=== PATIENT | female | born 1985 | race Caucasian/White ===

== ENCOUNTER 2016-11-23 09:10 | Emergency (ER) | payer OTHER ==
[~2016-11-23] VITALS: Ht 154.9 cm; Wt 98.4 kg
[~2016-11-23 09:10] MED LIST: ACIDOPHILUS1 EAC4 PO; ALBUTEROL SULF8.5 GM IH; BENTYL10 MG PO; CLEOCIN300 MG PO; CYCLOBENZAPRINE5 MG PO; DILAUDID2 MG PO; FLEXERIL10 MG PO; GABAPENTIN300 MG PO; IBUPROFEN800 MG PO; KEFLEX500 MG PO; MEDROL DOSEPAK4 MG PO; METRONIDAZOLE500 MG PO; MOTRIN800 MG PO; NAPROSYN500 MG PO; NAPROXEN500 MG PO; NORCO 10/3251 TABLET PO; PERCOCET 7.51 TABLET PO; PROAIR HFA8.5 GM IH; ROBITUSSIN AC,T10 ML PO; ROXICODONE5 MG PO; SERTRALINE HCL50 MG PO; SPACER; TESSALON PERLE100 MG PO; TORADOL10 MG PO; TRAMADOL HCL50 MG PO; VALIUM5 MG PO; ZITHROMAX500 MG PO; ZOFRAN ODT4 MG PO; ZOFRAN4 MG PO; ZOLOFT100 MG PO; ZOLOFT50 MG PO
[2016-11-23] MEDS ORDERED: LIDODERM 5% P1 PATCH TD (12:12)
[2016-11-23] MEDS ORDERED: BACLOFEN10 MG PO (12:12)
[2016-11-23 12:23] VITALS: BP 142/78
== END 2016-11-23 12:23 | disposition home or self-care (01) ==
LOC: EME 09:10
DX: S46.812A Strain of other muscles, fascia and tendons at shoulder and upper arm level, left arm, initial encounter (principal); M62.830 Muscle spasm of back; R20.2 Paresthesia of skin; G89.29 Other chronic pain; Z91.040 Latex allergy status
CPT/HCPCS: 99281; 99283

== ENCOUNTER 2016-11-25 19:25 | Emergency (ER) | payer OTHER ==
[~2016-11-25] VITALS: Ht 154.9 cm; Wt 78.8 kg
[~2016-11-25 19:25] MED LIST changes: +BACLOFEN10 MG PO; +LIDODERM 5% P1 PATCH TD
[2016-11-25 20:49] LABS: EOSINOPHIL (%) 2.5 % (0-5); EOSINOPHIL COUNT 0.4 K/uL (0-0.3); HEMATOCRIT 39.8 % (36.0-46.0); IMMATURE GRANULOCYTE (%) 0.2 % (0.0-0.7); IMMATURE GRANULOCYTE COUNT 0.3 K/uL; LYMPHOCYTE COUNT 1.7 K/uL (1.0-2.8); MCH 31.2 PG (29.0-34.0); MCHC 35.4 G/DL (30.0-36.0); MCV 88.1 FL (83-99); MEAN PLAT.VOLUME 10.8 uM^3 (9.5-12.4); MONOCYTE (%) 4.8 % (3-12); MONOCYTE COUNT 0.8 K/uL (0-0.8); NEUTROPHIL (%) 81.6 % (45-76); NEUTROPHIL COUNT 13.1 K/uL (1.8-6.4); PLATELET COUNT 263 K/uL (156-360); RBC DIS.WIDTH-CV 13.5 % (11.8-14.6); RED BLOOD COUNT 4.52 M/uL (3.80-5.20)
[2016-11-25 21:00] LABS: CHLORIDE 106 mEq/L (99-109); POTASSIUM 4.3 mEq/L (3.7-5.4); SODIUM 137 mEq/L (136-147)
[2016-11-25 21:02] LABS: GLUCOSE 99 mg/dL (70-99)
[2016-11-25 21:03] LABS: ANION GAP 11 MEQ/L (2-14)
[2016-11-25 21:04] LABS: TOTAL BILIRUBIN 0.3 mg/dL (0.0-1.0)
[2016-11-25 21:06] LABS: GFR ESTIMATE (CALCULATED) > 59 mL/min/
[2016-11-25 21:07] LABS: ALKALINE PHOSPHATASE 82 IU/L (3-129)
[2016-11-25 21:08] LABS: DIRECT BILIRUBIN 0.1 mg/dL (0.0-0.3); UREA NITROGEN (BUN) 14 mg/dL (9-23)
[2016-11-25 21:09] LABS: SALICYLATE < 5.0 MG/DL (15-30)
[2016-11-25 21:19] LABS: AMPHETAMINE NEGATIVE (500 ng/mL); BARBITURATES NEGATIVE (200 ng/mL); BENZODIAZEPINES NEGATIVE (150 ng/mL); COCAINE NEGATIVE (150 ng/mL); INTERNAL CONTROLS VALID? YES; METHADONE NEGATIVE (200 ng/mL); METHAMPHETAMINE NEGATIVE (500 ng/mL); OPIATES (MORPHINE) NEGATIVE (100 ng/mL); OXYCODONE PRESUMPTIVE POSITIVE (100 ng/mL); PHENCYCLIDINE NEGATIVE (25 ng/mL); PROPOXYPHENE NEGATIVE (300 ng/mL); THC CANNABINOIDS PRESUMPTIVE POSITIVE (50 ng/mL); TRICYCLIC ANTIDEPRESSANTS PRESUMPTIVE POSITIVE (300 ng/mL)
[2016-11-25 21:20] LABS: ADD MEDTOX COMMENT Y
[2016-11-25 23:49] LABS: BILIRUBIN NEGATIVE; BLOOD NEGATIVE; COLOR YELLOW ((YELLOW)); GLUCOSE (STRIP) NEGATIVE; KETONES NEGATIVE; LEUKOCYTES NEGATIVE; NITRITE NEGATIVE; PROTEIN (STRIP) NEGATIVE; SPECIFIC GRAVITY 1.027 (1.000-1.030); UROBILINOGEN 0.2 MG/DL (0.2-1.0)
[2016-11-25 23:55] LABS: ADD MIUA? NO
[2016-11-26 00:21] VITALS: BP 111/67
== END 2016-11-26 00:22 | disposition home or self-care (01) ==
LOC: EME 19:25
PROVIDERS: Emergency Medicine
DX: T50.991A Poisoning by other drugs, medicaments and biological substances, accidental (unintentional), initial encounter (principal); M25.512 Pain in left shoulder; R53.83 Other fatigue; Z79.891 Long term (current) use of opiate analgesic; J45.909 Unspecified asthma, uncomplicated; F17.200 Nicotine dependence, unspecified, uncomplicated; F12.90 Cannabis use, unspecified, uncomplicated
CPT/HCPCS: 80048; 80076; 81003; 84999; 85025; 93005; 99281; 99285; G0480; J2310; J7030

== ENCOUNTER 2016-12-10 09:23 | Emergency (ER) | payer OTHER ==
[~2016-12-10] VITALS: Ht 157.5 cm; Wt 75.3 kg
[2016-12-10 10:12] LABS: HEMATOCRIT 40.4 % (36.0-46.0); MCH 30.3 PG (29.0-34.0); MCHC 34.2 G/DL (30.0-36.0); MCV 88.6 FL (83-99); MEAN PLAT.VOLUME 11.2 uM^3 (9.5-12.4); PLATELET COUNT 225 K/uL (156-360); RBC DIS.WIDTH-CV 13.6 % (11.8-14.6); RBC DIS.WIDTH-SD 43.5 % (39-53); RED BLOOD COUNT 4.56 M/uL (3.80-5.20)
[2016-12-10 10:13] LABS: WHITE BLOOD COUNT 5.3 K/uL (4.1-10.2)
[2016-12-10 10:21] LABS: CHLORIDE 107 mEq/L (99-109); POTASSIUM 3.6 mEq/L (3.7-5.4); SODIUM 140 mEq/L (136-147)
[2016-12-10 10:23] LABS: GLUCOSE 104 mg/dL (70-99)
[2016-12-10 10:24] LABS: ANION GAP 12 MEQ/L (2-14)
[2016-12-10 10:25] LABS: TOTAL BILIRUBIN 0.5 mg/dL (0.0-1.0)
[2016-12-10 10:27] LABS: ALKALINE PHOSPHATASE 83 IU/L (3-129); GFR ESTIMATE (CALCULATED) > 59 mL/min/
[2016-12-10 10:28] LABS: UREA NITROGEN (BUN) 9 mg/dL (9-23)
[2016-12-10 10:36] LABS: QUANTITATIVE HCG < 4.0 MIU/ML
[2016-12-10 10:58] LABS: ADD MIUA? NO; BILIRUBIN NEGATIVE; BLOOD NEGATIVE; COLOR YELLOW ((YELLOW)); GLUCOSE (STRIP) NEGATIVE; KETONES NEGATIVE; LEUKOCYTES NEGATIVE; NITRITE NEGATIVE; PROTEIN (STRIP) NEGATIVE; UCUL ADDED? NO; UROBILINOGEN 0.2 MG/DL (0.2-1.0)
[2016-12-10 12:16] VITALS: BP 129/98
== END 2016-12-10 12:18 | disposition home or self-care (01) ==
LOC: EME 09:23
DX: K52.9 Noninfective gastroenteritis and colitis, unspecified (principal); J45.909 Unspecified asthma, uncomplicated; F17.200 Nicotine dependence, unspecified, uncomplicated; Z87.442 Personal history of urinary calculi
CPT/HCPCS: 80053; 81003; 84702; 85027; 87493; 99281; 99285; J1200; J2405; J2765; J7030

== ENCOUNTER 2017-03-19 09:41 | Emergency (ER) | payer OTHER ==
[~2017-03-19] VITALS: Ht 154.9 cm; Wt 70.0 kg
[2017-03-19 09:56] VITALS: BP 114/75
[2017-03-19] MEDS ORDERED: PERCOCET 5/31 TABLET PO (10:42)
[2017-03-19] MEDS ORDERED: CYCLOBENZAPRINE10 MG PO (10:43)
[2017-03-19] MEDS ORDERED: LIDODERM 5% P1 PATCH TD (11:26)
== END 2017-03-19 11:44 | disposition home or self-care (01) ==
LOC: EME 09:41
DX: S39.012A Strain of muscle, fascia and tendon of lower back, initial encounter (principal); W10.9XXA Fall (on) (from) unspecified stairs and steps, initial encounter; G89.29 Other chronic pain
CPT/HCPCS: 72100; 99281; 99284; J1885

== ENCOUNTER 2017-05-02 05:33 | Emergency (ER) | payer OTHER ==
[~2017-05-02] VITALS: Ht 154.9 cm; Wt 68.1 kg
[~2017-05-02 05:33] MED LIST changes: +CYCLOBENZAPRINE10 MG PO; +PERCOCET 5/31 TABLET PO
[2017-05-02] MEDS ORDERED: FLEXERIL10 MG PO (07:52)
[2017-05-02 07:57] VITALS: BP 140/83
== END 2017-05-02 08:04 | disposition home or self-care (01) ==
LOC: EME 05:33
DX: M54.6 Pain in thoracic spine (principal); G89.29 Other chronic pain; Z76.0 Encounter for issue of repeat prescription; F31.9 Bipolar disorder, unspecified; J45.909 Unspecified asthma, uncomplicated; R56.9 Unspecified convulsions; F17.200 Nicotine dependence, unspecified, uncomplicated
CPT/HCPCS: 99281; 99284; J1885; J2270

== ENCOUNTER 2017-06-21 17:55 | Emergency (ER) | payer OTHER ==
[~2017-06-21] VITALS: Ht 154.9 cm; Wt 67.7 kg
[2017-06-21 18:16] VITALS: BP 150/91
== END 2017-06-21 20:42 | disposition home or self-care (01) ==
LOC: EME 17:55
DX: M54.12 Radiculopathy, cervical region (principal); G89.29 Other chronic pain
CPT/HCPCS: 99281; 99282; J1885

== ENCOUNTER 2018-03-27 08:40 | Emergency (ER) | payer OTHER ==
[~2018-03-27] VITALS: Ht 154.9 cm; Wt 70.8 kg
[2018-03-27] MEDS ORDERED: TRAMADOL HCL50 MG PO (09:30)
[2018-03-27] MEDS ORDERED: NAPROSYN500 MG PO (09:30)
[2018-03-27] MEDS ORDERED: BACLOFEN10 MG PO (09:30)
[2018-03-27 09:53] VITALS: BP 133/101
== END 2018-03-27 09:56 | disposition home or self-care (01) ==
LOC: EME 08:40
DX: S43.81XA Sprain of other specified parts of right shoulder girdle, initial encounter (principal); M62.830 Muscle spasm of back; J30.2 Other seasonal allergic rhinitis; F41.9 Anxiety disorder, unspecified; Z91.040 Latex allergy status
CPT/HCPCS: 99281; 99283

== ENCOUNTER 2018-05-26 11:00 | Emergency (ER) | payer OTHER ==
[~2018-05-26] VITALS: Ht 154.9 cm; Wt 72.9 kg
[2018-05-26] MEDS ORDERED: ULTRAM50 MG PO (12:21)
[2018-05-26] MEDS ORDERED: MEDROL DOSEPAK4 MG PO (12:21)
[2018-05-26 13:07] VITALS: BP 132/80
== END 2018-05-26 13:08 | disposition home or self-care (01) ==
LOC: EME 11:00
DX: S16.1XXA Strain of muscle, fascia and tendon at neck level, initial encounter (principal); X58.XXXA Exposure to other specified factors, initial encounter; G89.29 Other chronic pain; F32.9 Major depressive disorder, single episode, unspecified; Z87.442 Personal history of urinary calculi; F41.9 Anxiety disorder, unspecified; Z86.69 Personal history of other diseases of the nervous system and sense organs; Z91.040 Latex allergy status; F17.200 Nicotine dependence, unspecified, uncomplicated
CPT/HCPCS: 72040; 99281; 99284; J3010

== ENCOUNTER 2018-06-06 13:08 | Emergency (ER) | payer OTHER ==
[~2018-06-06] VITALS: Ht 154.9 cm; Wt 71.7 kg
[~2018-06-06 13:08] MED LIST changes: +ULTRAM50 MG PO
[2018-06-06] MEDS ORDERED: BUSPAR5 MG PO (13:45)
[2018-06-06] MEDS ORDERED: CELEXA10 MG PO (13:46)
[2018-06-06] MEDS ORDERED: FLEXERIL10 MG PO (14:27)
[2018-06-06] MEDS ORDERED: LIDODERM 5% P1 PATCH TD (14:27)
[2018-06-06] MEDS ORDERED: MOTRIN800 MG PO (14:27)
[2018-06-06 14:39] VITALS: BP 150/98
== END 2018-06-06 14:44 | disposition home or self-care (01) ==
LOC: EME 13:08
DX: G89.29 Other chronic pain (principal); M54.5 Low back pain; Z91.040 Latex allergy status
CPT/HCPCS: 99281; 99284